=== PATIENT | male | born 1955 | race Caucasian/White ===

== ENCOUNTER 2025-03-05 20:54 | Emergency (ER) | payer MEDICARE, SELFPAY ==
--- OUTSIDE RECORDS SUMMARY | 2025-03-03 10:30 | XMS_ITS | Encounter Summary ---
Author Organization [facility] Ambulatory Address [address] [place] [address] Phone Care Team Providers Care Physician Practice Consultant Name Role Phone Maya Gastelum PA-C Unavailable [phone] Sander Bear MD Unavailable [phone] Elizabeth Blackmon MD, Viktoriya Unavailable [phone] Provider, Generic External Data Unavailable Unavailable Malou Yang PA-C Unavailable [phone] Dominic Rock MD Unavailable Citlali Pak PA-C Unavailable [phone] Provider, Historical Unavailable Unavailable Source Comments This information has been disclosed to you from records protected by federal confidentiality rules (42 CFR part 2). The federal rules prohibit you from making any further disclosure of information inthis record that identifies a patient as having or having had a substance use disorder either directly, by reference to publicly available information, or through verification of such identification by another person unless further disclosure is expressly permitted by the written consent of the individual whose information is being disclosed or as otherwise permitted by 42 CFR part 2. A general authorization for the release of medical or other information is NOT sufficient for this purpose (seesection 2.31). The federal rules restrict any use of the information to investigate or prosecute with regard to a crime any patient with a substance use disorder, except as provided at sections 2.12(c)(5) and 2.65.[facility] Ambulatory Reason for Visit * Reason Comments Bcg Instillation Encounter Details Date Type Department Care Team (Handy Contact Info) Description 03/03/2025 10:30 AM EDT Office Visit [facility] Department of Urology [address] [place] [address], [address] [address] Composite Bond Technician: Rita Miller Jessie Jane, PA-C [address] [place] [address] [address] Malignant neoplasm of overlapping sites of bladder (HCC) (Primary Dx) Social History Tobacco Use Types Packs/Day Years Used Date Smoking Tobacco: Former Cigarettes Smokeless Tobacco: Current Snuff Sex and Gender Information Value Date Recorded Sex Assigned at Not on file Legal Sex Male 1:25 PM EST Gender Identity Male 02/26/2025 8:54 PM EDT Sexual Orientation Straight 02/26/2025 8: 54 PM EDT documented as of this encounter Last Filed Vital Signs Vital Sign Reading Time Taken Comments Blood Pressure - - Pulse - - Temperature - - Respiratory Rate - - Oxygen Saturation - - Inhaled Oxygen Concentration - - Weight 88 kg (194 lb) 03/03/2025 10:39 AM EDT Height 175.3 cm (5' 9 ) 03/03/2025 10:39 AM EDT Body Mass Index 28.65 03/03/2025 10:39 AM EDT documented in this encounter Progress Notes * Cheryl Mayberry - 03/03/2025 10:30 AM EDT Instillation number: 3/3 Catheter size: 14 Catheter style: Coude Catheter type: Silicone 1. Have you had a fever, chills, or sweats at any time during the last four days? No 2. Have you seen blood in your urine at any time during the last four days? No 3. Have you experienced burning with urination during the last four days? No Any Yes answers will be communicated to an MD for direction and documented with the following questions: 4. Which MD did you speak with? Pasha SCHULTZ 5. What was the direction? Jose MA verbally discussed post BCG administration instructions with patient. documented in this encounter Plan of Treatment Not on file documented as of this encounter Procedures Procedure Name Priority Date/Time Associated Diagnosis Comments POCT URINALYSIS DIPSTICK Routine 03/03/2025 11:42 AM EDT Malignant neoplasm of overlapping sites of bladder (HCC) documented in this encounter Results * POCT URINALYSIS DIPSTICK (03/03/2025 11:42 AM EDT) COLOR - URINE (POC) YELLOW EXTERNAL FACILITY APPEARANCE - URINE (POC) CLEAR EXTERNAL FACILITY GLUCOSE - URINE (POC) >=1,000 Negative mg/dl EXTERNAL FACILITY BILIRUBIN - URINE (POC) neg Negative mg/dl EXTERNAL FACILITY KETONES - URINE (POC) neg Negative mg/dl EXTERNAL FACILITY SPECIFIC GRAVITY - URINE (POC) 1.020 1.003 - 1.035 EXTERNAL FACILITY BLOOD - URINE (POC) trace-inta ct Negative EXTERNAL FACILITY PH - URINE (POC) 5.5 5 - 9 EXT ERNAL FACILITY PROTEIN - URINE (POC) (MG/DL) 30 Negative mg/dl EXTERNAL FACILITY UROBILINOGEN - URINE (POC) (EU/DL) 0.2 0.2 - 1 mg/dl EXTERNAL FACILITY NITRITE - URINE (POC) pos Negative EXTERNAL FACILITY LEUKOCYTE - URINE (POC) small Negative EXTERNAL FACILITY Urine 03/03/2025 11:4 2 AM EDT Citlali Pak PA-C LAB POINT OF CARE TEST ENTER/EDIT ORDERABLES Final Result EXTERNAL FACILITY documented in this encounter Visit Diagnoses Diagnosis Malignant neoplasm of overlapping sites of bladder (HCC)- Primary Malignant neoplasm of other specified sites of bladder documented in this encounter Administered Medications Inactive Administered Medications - up to 3 most recent administrations Medication Order MAR Action Action Date Dose Rate Site BCG Live (Olpe BCG) susr 50 mg 50 mg, Normal, intravesical, Once, 1 dose, On Sat03/03/25 at 1230Indications:Malignant neoplasm of overlapping sites of bladder (HCC) Given 03/03/2025 12:30 PM EDT 50 mg documented in this encounter Care Teams Physician Practice Consultant Relationship Specialty Start Date End Date Maya Gastelum PA-C [address] [facility] [address] [place] [phone] PCP - CANCER CTR RMD 06/12/23 Sander Bear MD [address] [place] [address], [address] [facility] [place] [address] PCP - Cancer CTR Hematology & Oncology-Internal Med 06/12/23 Viktoriya Johnson MD [address] [facility] [address], [address] [place] [address] Urology 06/13/23 Provider, Generic External Data 06/25/23 Malou Yang PA-C [address] [facility] [address] [place] [address] Urology 10/10/23 Dominic Rock MD [address] [facility] [address] [place] [address] Urology 02/15/24 Citlali Pak PA-C [address] [facility] [address] [place] [phone] Urology 03/25/24 Provider, Historical EPICARE PROVIDER 12/02/24 documented as of this encounter
[2025-03-05 20:58] VITALS: BP 175/98; PULSE 77; RESP 20; TEMP 36.1; O2SAT 98; BMI 28.6
--- NOTE | 2025-03-05 21:06 | ED.GENADULT ---
HPI - General Adult General Chief complaint: Urogenital-Male Stated complaint: Needs catheter Time Seen by Provider: 03/05/25 21:05 Source: patient Limitations: no limitations History of Present Illness ED Provider: Teresa Chávez PA-C HPI narrative: 69-year-old male with self report of bladder cancer, currently admits treatment, with subsequent development of neurogenic bladder who self catheterizes at home, presents with retention. Patient states he is visiting from [place], he is here for a week, he forgot his catheter is at home. Patient last catheterized himself this morning, he is feeling bladder fullness at this time. Denies dysuria, nausea, vomiting, fever, abdominal pain or back pain. Related Data Previous Rx's ?Medication ?Instructions ?Recorded catheterization tray 14 Fr #20 ea 03/05/25 Allergies Allergy/AdvReac Type Severity Reaction Status Date / Time No Known Allergies Allergy Verified 03/05/25 21:02 Review of Systems Review of Systems: Yes all other systems are reviewed and are negative Constitutional: Constitutional: Denies fatigue and Denies fever(s) Cardiovascular: Cardiovascular: Denies chest pain and Denies dyspnea Respiratory: Respiratory: Denies dyspnea Gastrointestinal: Gastrointestinal: Denies abdominal pain, Denies nausea and Denies vomiting Genitourinary: Genitourinary: Denies dysuria and Denies flank pain Endocrine: Endocrine: Denies fatigue PMF Past Medical History Attestation statement: The following information was validated with the patient. Medical History (Updated 03/05/25 @ 21:12 by DMITRY Gilmore) Neurogenic bladder Social History Social History Advance Directives: No Advance Directives Information Provided: No Do you have a plan to hurt others: No Plan Physical Exam ED Vital Signs: Vital Signs - 24 hr 03/05/25 20:58 Temperature 97.0 F Pulse Rate 77 Respiratory Rate 20 Blood Pressure 175/98 H Pulse Oximetry 98 Oxygen Delivery Method Room Air BMI result Body Mass Index 28.6 Const Other: Alert well-appearing Orientation/consciousness: patient oriented x3 Resp Effort & Inspection: normal respiratory effort Cardio Other: Normal peripheral perfusion Skin Other: Warm dry no rash Neuro General: patient oriented x3 and gait normal Psych Other: Cooperative Medical Decision Making Medical Decision Making MDM Narrative: 69-year-old male with self report of bladder cancer, currently admits treatment, with subsequent development of neurogenic bladder who self catheterizes at home, presents with retention. Patient states he is visiting from [place], he is here for a week, he forgot his catheter is at home. Patient last catheterized himself this morning, he is feeling bladder fullness at this time. Denies dysuria, nausea, vomiting, fever, abdominal pain or back pain. Problem: Neurogenic bladder, bladder cancer History: Per patient I have considered the following differential diagnoses: Acute urinary retention, UTI, pyelonephritis, obstructing kidney stone Plan: The patient is here simply because he requires catheterization. He self caths himself, he had over a 1000 mL of output. His symptoms are alleviated. Sending him with a prescription for catheters. He has no symptoms of a urinary tract infection, he has no abdominal pain or back pain to suggest pyelonephritis, no fevers. There was no indication for imaging or labs. Differential Diagnosis Differential Diagnoses: The differential diagnosis associated with the presentation includes See MDM Admission/Observation Consideration of admission/observation: Escalation of care including admission/observation considered Not applicable Discharge Plan Discharge Clinical Impression: Neurogenic bladder Patient Disposition: Home, Self-Care Instructions: Neurogenic Bladder (ED) Additional Instructions: Be sure to self-catheterize on a regular basis, retained urine has the propensity to develop into a urinary tract infection. Follow up with your primary care provider when you return home. Prescriptions: New (DME) catheterization tray 14 Fr tray See Rx Instructions .Route Qty: 20 0RF Rx Instructions: As directed Print Language: Portuguese
--- OUTSIDE RECORDS SUMMARY | 2025-03-05 21:26 | XMS_ITS | Encounter Summary ---
Author Organization [facility] Address [address] [facility] [place] [address] Care Team Providers Care Dietary Worker Name Role Phone Maya Gastelum PA-C Primary Care Provider Jeremiah Amos MD Unavailable [phone] Gómez Little MD, Hammad Unavailable [phone] Alesia Prakash [facility] Unavailable + Deysi Mosquera [facility] Unavailable Gordo Chicas MD Unavailable Nicky Irizarry MD Unavailable Viktoriya Johnson MD Unavailable Gordo White NP Unavailable Encounter Details Date Type Department Care Team (Late st Contact Info) Description 03/26/2023 Orders Only [facility] - Emergency Department [address] [place] [address] Almita Gil RTR Anemia Social History Tobacco Use Types Packs/Day Years Used Date Smoking Tobacco: Former Cigarettes 1.5 40 0 10/05/1973 - 10/05/2013 Smokeless Tobacco: Current Snuff Alcohol Use Standard Drinks/Week Comments Not Currently 0 (1 standard drink = 0.6 oz pur e alcohol) Intimate Partner Violence Answer Date R ecorded In the past year, have you b een afraid of your partner or ex-partner? No 01/10/2023 Social Connections Answer Date Recorded How often do you see or talk to people that you care about and feel close to? (For example: talking to friends on the phone, visiting friends or family, going to zoroastrianism or club meetings) 5 or more times a week 01/10/2023 Financial Resource Strain Answer Date R ecorded In the past year, have you o r any family members you live with been unable to get any of the following when it was really needed? No 01/10/2023 Transportation Needs Answer Date Record ed Has lack of transportation k ept you from medical appointments, meetings, work, or from getting things needed for daily living? No 01/10/2023 Housing Stability Answer Date Recorded What is your housing situation? I have housing. 01/10/2023 Are you worried about losing your housing? No 01/10/2023 Health Literacy Answer Date Recorded How often do you have a prob lazaro understanding what is told to you about your medical condition? Never 01/10/2023 Employment Status Answer Date Recorded What is your current work situation? 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 Answer Date of Assessment Author No 03/26/2022 7:43 AM Joan Coronel RN * Blind or serious difficulty seeing even with glasses? Answer Date of Assessment Author No 03/26/2022 7:43 AM Joan Coronel RN * Serious difficulty walking/climbing stairs? Answer Date of Assessment Author Yes 03/26/2022 7:43 AM Joan Coronel RN * Difficulty dressing or bathing? Answer Date of Assessment Author No 03/26/2022 7:43 AM Joan Coronel RN * Has difficulty doing errands because of physical, mental or emotional condition? Answer Date of Assessment Author No 03/26/2022 7:43 AM EDT Joan Wick RN documented as of this encounter Mental Status * Has serious difficulty concentrating, remembering or making decisions because of physical, mental or emotional condition ? Answer Entry Date Author No 03/26/2022 7:43 AM EDT Joan Wick RN documented in this encounter Plan of Treatment Upcoming Encounters Date Type Department Care Team (Late st Contact Info) Description 03/10/2025 9:00 AM EDT Office Visit Plastic Surgery [address] [place] [address], [place] [phone] Loc Chavez MD [address] [place] [address] [address] [place], [place] [phone] 04/01/2025 10:30 AM EDT Office Visit Family Medicine[address], [place] [phone] Maya Gastelum PA-C [address] [place] [address], [place] [phone] 04/16/2025 1:00 PM EDT Office Visit Hematology/Oncology, [facility] [address] [place] [address], [place] [phone] Teresita Warren NP [address] [facility] [address] [place], [place] [phone] 12/01/2025 10:00 AM EDT Office Visit [facility] [address] [place] [address], [place] [phone] Ruba Gil DO [address] [place] [address], [place] [phone] documented as of this encounter Procedures Procedure Name Priority Date/Time Associated Diagnosis Comments SCAN DIFFERENTIAL Routine 03/26/2023 5:1 1 PM EDT Anemia CBC WITH DIFF STAT 03/26/2023 5:11 PM EDT Anemia CBC/DIFF STAT 03/26/2023 5:11 PM EDT Anemia documented in this encounter Results * SCAN DIFFERENTIAL (03/26/2023 5:11 PM EDT) LARGE PLATELETS Present 8:46 PM EDT [facility] ANISOCYTOSIS 2+ 03/26/2023 8:46 PM EDT [facility] OVALOCYTE (ELLIPTOCYTE) 1+ 03/26/2023 8:46 PM EDT [facility] WBC MORPHOLOGY COMMENT Normal 03/26/2023 8:46 PM EDT [facility] POIKILOCYTOSIS Present 03/26/2023 8:46 PM EDT [facility] Blood BLOOD SPECIMEN / Unknown Venipuncture / Unknown 03/26/2023 5:11 PM EDT 03/26/2023 7:44 PM EDT us Clarissa Louis PA-C LAB-HEMATOLOGY ORDERABLES Final Result [facility] [address] [place] [address] * (ABNORMAL) CBC WITH DIFF (03/26/2023 5:11 PM EDT) WBC 10.1 4.5 - 11.0 x10 3/uL 03/26/2023 8:46 PM EDT [facility] RBC 4.27(L) 4.70 - 5.40 x10 6/uL 03/26/2023 8:46 PM EDT [facility] HGB 8.8(L) 13.5 - 18.0 g/dL 03/26/2023 8:46 PM EDT [facility] HCT 29.4(L) 42.0 - 52.0 % 03/26/2023 8:46 PM EDT [facility] MCV 68.9(L) 78.0 - 100.0 fL 03/26/2023 8:46 PM EDT [facility] MCH 20.5(L) 28.0 - 33.0 pg 03/26/2023 8:46 PM EDT [facility] MCHC 29.8(L) 32.0 - 37.0 g/dL 03/26/2023 8:46 PM EDT [facility] RDW 20.1(H) 9.9 - 16.5 % 03/26/2023 8:46 PM EDT [facility] PLATELETS 424(H) 130 - 400 x10 3/uL 03/26/2023 8:46 PM EDT [facility] NEUTROPHIL % 73(H) 50 - 70 % 03/26/2023 8:46 PM EDT [facility] LYMPHOCYTE % 17(L) 23 - 35 % 03/26/2023 8:46 PM EDT [facility] MONOCYTE % 6 0 - 12 % 03/26/2023 8:46 PM EDT [facility] EOSINOPHIL % 4 0 - 4 % 03/26/2023 8:46 PM EDT [facility] BASOPHIL % 1 0 - 1 % 03/26/2023 8:46 PM EDT [facility] NEUTROPHIL # 7.40(H) 1.70 - 7.00 x10 3/uL 03/26/2023 8:46 PM EDT [facility] LYMPHOCYTE # 1.70 0.90 - 4.80 x10 3/uL 03/26/2023 8:46 PM EDT [facility] MONOCYTE # 0.60 0.30 - 0.90 x10 3/uL 03/26/2023 8:46 PM EDT [facility] EOSINOPHIL # 0.40 0.00 - 0.50 x10 3/uL 03/26/2023 8:46 PM EDT [facility] BASOPHIL # 0.10 0.00 - 0.30 x10 3/uL 03/26/2023 8:46 PM EDT [facility] Blood BLOOD SPECIMEN / Unknown Venipuncture / Unknown 03/26/2023 5:11 PM EDT 03/26/2023 7:44 PM EDT Clarissa Louis PA-C LAB-HEMATOLOGY ORDERABLES Final Result [facility] [address] [place], [place] [phone] documented in this encounter Visit Diagnoses Diagnosis Anemia Anemia, unspecified documented in this encounter Care Teams Dietary Worker Relationship Specialty Start Date End Date Maya Gastelum PA-C [address] [facility] [address] [place], [place] [phone] PCP - General PHYSICIAN CIVIL PREPAREDNESS OFFICER 05/02/22 Jeremiah Amos MD [address] [facility] [address] [place], [place] [phone] ORTHOPAEDIC SURGERY 06/27/22 Hammad Magaña Jr., MD [address] [place], [place] [phone] UROLOGY 06/27/22 07/22/23 Alesia Prakash [facility] [address] [place] [address] [address] [place] [address] Registered Nurse FAMILY NURSE PRACTITIONER 06/27/22 Deysi Mosquera APRN,[facility] [address] [address] [place] [address] FAMILY NURSE PRACTITIONER 06/27/22 Gordo Chicas MD [address] [place] [address] [address] [place] [address] GASTROENTEROLOGY 06/27/22 Semins, Nicky De Paz MD [address] [facility] [place] [address] UROLOGY 06/12/23 Viktoriya Johnson MD [address] [facility] [address] [place] [address] UROLOGY 02/20/24 Gordo White NP [address] [place] [address] FAMILY NURSE PRACTITIONER 10/06/24 documented as of this encounter
--- OUTSIDE RECORDS SUMMARY | 2025-03-05 21:26 | XMS_ITS | Encounter Summary ---
Author Organization [facility] Address [address] [facility] [place] [place] [address] Care Team Providers Care Stock Associate Name Role Phone Maya Gastelum PA-C Primary Care Provider [phone] Jeremiah Amos MD Unavailable Alesia Prakash MEETING PLANNER-BC Unavailable + Deysi Mosquera APRNMEETING PLANNER-BC Unavailable [phone] Gordo Chicas MD Unavailable Nicky Irizarry MD Unavailable Viktoriya Johnson MD Unavailable Gordo White NP Unavailable Encounter Details Date Type Department Care Team (Late st Contact Info) Description 03/01/2025 Orders Only Family Medicine, [facility] Professional Building [address] [place] [address] [place] [phone] Maya Gastelum PA-C [address] [place] [address] [place] [address] Social History Tobacco Use Types Packs/Day Years Used Date Smoking Tobacco: Former Cigarettes 1.5 40 0 10/05/1973 - 10/05/2013 Smokeless Tobacco: Current Snuff Alcohol Use Standard Drinks/Week Comments Not Currently 0 (1 standard drink = 0.6 oz pur e alcohol) Very rare. Intimate Partner Violence Answer Date R ecorded In the past year, have you b een afraid of your partner or ex-partner? No 06/04/2023 Social Connections Answer Date Recorded How often do you see or talk to people that you care about and feel close to? (For example: talking to friends on the phone, visiting friends or family, going to orthodox or club meetings) 5 or more times a week 05/25/2024 Financial Resource Strain Answer Date R ecorded In the past year, have you o r any family members you live with been unable to get any of the following when it was really needed? No 06/04/2023 Transportation Needs Answer Date Record ed Has lack of transportation k ept you from medical appointments, meetings, work, or from getting things needed for daily living? No 06/04/2023 Housing Stability Answer Date Recorded What is your housing situation? I have housing. 06/04/2023 Are you worried about losing your housing? No 06/04/2023 Health Literacy Answer Date Recorded How often do you have a prob lazaro understanding what is told to you about your medical condition? Never 05/25/2024 Employment Status Answer Date Recorded What is your current work situation? 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 Answer Date of Assessment Author No 05/22/2024 2:00 PM Patt Goddard RN * Blind or serious difficulty seeing even with glasses? Answer Date of Assessment Author No 05/22/2024 2:00 PM Patt Goddard RN * Serious difficulty walking/climbing stairs? Answer Date of Assessment Author No 05/22/2024 2:00 PM Patt Goddard RN * Difficulty dressing or bathing? Answer Date of Assessment Author No 05/22/2024 2:00 PM Patt Goddard RN * Has difficulty doing errands because of physical, mental or emotional condition? Answer Date of Assessment Author No 05/22/2024 2:00 PM Patt Goddard RN documented as of this encounter Mental Status * Has serious difficulty concentrating, remembering or making decisions because of physical, mental or emotional condition ? Answer Entry Date Author No 05/22/2024 2:00 PM Patt Goddard RN documented in this encounter Plan of Treatment Upcoming Encounters Date Type Department Care Team (Late st Contact Info) Description 03/10/2025 9:00 AM EDT Office Visit Plastic Surgery [address] [place] [address], [place] [phone] Loc Chavez MD [address] [address] 04/01/2025 10:30 AM EDT Office Visit Family Medicine[address] [phone] Maya Gastelum PA-C [address] [place] [address] [phone] 04/16/2025 1:00 PM EDT Office Visit Hematology/Oncology, [place] [address] [address] [place] [phone] Teresita Warren NP [address] [place] [address] 12/01/2025 10:00 AM EDT Office Visit [facility] [address] [place] [address], W [phone] Ruba Gil DO [address] [place] [address], [place] [phone] documented as of this encounter Visit Diagnoses Not on filedocumented in this encounter Care Teams Stock Associate Relationship Specialty Start Date End Date Maya Gastelum PA-C [address] [place], [place] [address] [place], [place] [phone] PCP - General PHYSICIAN CLINICAL LAB TECHNOLOGIST 05/02/22 Jeremiah Amos MD [address] [facility] [address] [place], [place] [phone] ORTHOPAEDIC SURGERY 06/27/22 Alesia Prakash, [facility] [address] [address] [place] [address] Registered Nurse FAMILY NURSE PRACTITIONER 06/27/22 Deysi Mosquera APRN,[facility] [address] [place] [address] 300 [place] [address] FAMILY NURSE PRACTITIONER 06/27/22 Gordo Chicas MD [address] [place] [address], [place] [address] GASTROENTEROLOGY 06/27/22 Nicky Irizarry MD [address] [facility] [place] [address] UROLOGY 06/12/23 Viktoriya Johnson MD [address] [place] [address] [address] [place] [address] UROLOGY 02/20/24 Gordo White NP 1 [facility] [place] [address] FAMILY NURSE PRACTITIONER 10/06/24 documented as of this encounter
--- OUTSIDE RECORDS SUMMARY | 2025-03-05 21:26 | XMS_ITS | Clinical Summary ---
Author Organization [facility] Address [address] [facility] [place] [address] Care Team Providers Care Cash Sales Audit Clerk Name Role Phone Maya Gastelum PA-C Primary Care Provider [phone] Jeremiah Amos MD Unavailable Alesia Prakash GAS ENGINE OPERATOR GENERAT[employer]-BC Unavailable + Deysi Mosquera APRNGAS ENGINE OPERATOR GENERATORS-BC Unavailable Gordo Chicas MD Unavailable Nicky Irizarry MD Unavailable Viktoriya Johnson MD Unavailable Gordo White NP Unavailable Allergies Active Allergy Reactions Criticality Noted Date Comments Sulfamethoxazole-Trime thoprim Itching Low 10/05/2021 Ciprofloxacin Hcl Rash,Itching Medium 10/05/2021 Succinylcholine Chloride Other Adverse Reaction (Add comment) High 10/05/2021 EXAGGERATED INCREASES IN CK LEVELS DURING MICROLARYNGOSCOPY & SHOULD AVOID EXPOSURE TO THIS POLARIZING MS RELAXANT. Nitrofurantoin Monohyd/M-Cryst Itching Low 10/05/2021 Morphine Mental Status Effect 03/04/2024 Succinylcholine Other Adverse Reaction (Add comment) Low 10/05/2021 [email or web address] Medications * This document contains information received from the source organization and may not represent a complete record from that organization. aspirin (ECOTRIN) 81 mg Oral Tablet, Delayed Release (E.C.) Take 1 Tablet (81 mg total) by mouth Once a day 02/21/20 22 Active ferrous sulfate (FEOSOL) 325 mg (65 mg iron) Oral Tablet Take 1 Tablet (325 mg total) by mouth Once a day 30 Tablet 3 03/28/20 23 Active cyclobenzaprin e (FLEXERIL) 10 mg Oral Tablet TAKE 1 TABLET BY MOUTH EVERY NIGHT NEEDED FOR MUSCLE SPASMS 30 Tablet 2 12/17/19 24 Active budesonide-gly copyr-formoter ol (BREZTRI AEROSPHERE) 160-9-4.8 mcg/actuation Inhalation HFA Aerosol Inhaler Take 2 Puffs by inhalation Twice daily 1 Each 10/02/19 25 Active atorvastatin (LIPITOR) 80 mg Oral Tablet TAKE ONE TABLET BY MOUTH ONCE NIGHTLY 90 Tablet 1 11/10/19 25 Active DULoxetine (CYMBALTA DR) 60 mg Oral Capsule, Delayed Release(E.C.) TAKE 1 CAPSULE BY MOUTH DAILY 90 Capsule 1 11/10/19 25 Active levothyroxine (SYNTHROID) 88 mcg Oral Tablet TAKE 1 TABLET BY MOUTH DAILY 90 Tablet 1 12/29/19 25 Active metFORMIN (GLUCOPHAGE XR) 500 mg Oral Tablet Sustained Release 24 hr TAKE 4 TABLETS BY MOUTH EVERY EVENING WITH DINNER 360 Tablet 1 02/09/20 25 Active losartan (COZAAR) 25 mg Oral Tablet TAKE 1 TABLET BY MOUTH DAILY 90 Tablet 1 02/09/20 25 Active allopurinoL (ZYLOPRIM) 100 mg Oral Tablet TAKE 1 TABLET BY MOUTH DAILY 90 Tablet 1 02/09/20 25 Active dapagliflozin propanediol (FARXIGA) 10 mg Oral Tablet Take 1 Tablet (10 mg total) by mouth Once a day 90 Tablet 1 03/01/20 25 Active dapagliflozin propanediol (FARXIGA) 10 mg Oral Tablet Take 1 Tablet (10 mg total) by mouth Once a day 90 Tablet 1 03/20/20 24 025 Discontinued(Re order) allopurinoL (ZYLOPRIM) 100 mg Oral Tablet Take 1 Tablet (100 mg total) by mouth Once a day 90 Tablet 1 07/28/19 25 025 Discontinued losartan (COZAAR) 25 mg Oral Tablet Take 1 Tablet (25 mg total) by mouth Once a day 90 Tablet 1 08/11/19 25 025 Discontinued metFORMIN (GLUCOPHAGE XR) 500 mg Oral Tablet Sustained Release 24 hr Take 4 Tablets (2,000 mg total) by mouth Every evening with dinner TAKE FOUR TABLETS BY MOUTH ONCE DAILY Strength: 500 mg 360 Tablet 1 08/11/19 25 025 Discontinued Hospital, Clinic, or Other Facility Administered Medication Ordered Dose Route Frequency Start Date End Date Status dexAMETHasone 4 mg/mL injection 4 mg IM NOW 02/12/2025 02/12/2025 Ended Active Problems Problem Noted Date Diagnosed Date Chronic respiratory failure with hypoxia ([facility]) 12/30/2024 Hematuria 02/16/2024 Acute kidney injury ([facility]) 02/16/2024 Chronic obstructive pulmonary disease 07/23/2023 Malignant neoplasm of urinary bladder 07/23/2023 Obstructive sleep apnea 07/23/2023 HTN (hypertension) 07/23/2023 Neurogenic bladder 06/04/2023 Multiple comorbid conditions 06/04/2023 Elevated PSA 06/04/2023 Gross hematuria 06/03/2023 Iron deficiency anemia due to chronic blood loss 04/04/2023 Chronic kidney disease, stage 3b ([facility]) 08/27 Overview (08/27/2022): Noted by AARON Perdomo GAS ENGINE OPERATOR GENERATORS last documented on [id number] Major depressive disorder, r ecurrent, in full remission ([facility]) 08/27/2022 Overview (08/27/2022): Noted by LAKISHA Lincoln PAC last documented on [id number] Chronic kidney disease 06/27/2022 Chest pain 02/20/2022 Uncontrolled hypertension 11/28/2021 Assessment & Plan (11/28/2021 1:29 PM EDT): - continue lisinopril Mixed hyperlipidemia 11/28/2021 Assessment & Plan (11/28/2021 1:30 PM EDT): - lipid panel today - continue atorvastatin Type 2 diabetes mellitus wit hout complication, with long-term current use of insulin 11/28/2021 Assessment & Plan (11/28/2021 1:30 PM EDT): - A1c ordered today - continue metformin Chronic gout 11/28/2021 Assessment & Plan (11/28/2021 1:31 PM EDT): - continue allopurinol Resolved Problems Problem Noted Date Diagnosed Date Resolved Date Bilateral occipital neuralgia 11/28/2021 11/28/2021 Assessment & Plan (11/28/2021 1:37 PM EDT): - BL occipital nerve blocks Encounters Date Type Department Care Team Description 03/01/2025 Orders Only Family [address] [place] [address] Maya Gastelum PA-C 02/14/2025 Travel 02/12/2025 10:00 AM EDT Office Visit [facility] [address] [place] [address] Freddy Garcia III, FNP-[place] Headache (Primary Dx) 02/12/2025 Travel 02/10/[address] [place] [address] Maya Gastelum PA-C Coordination Of Care 02/08/2025 Telephone Gastroenterology, [address] [address] Dae Webb DO 02/06/2025 Refill Family [facility], [address] [place] [address] Maya Gastelum PA-C 01/24/2025 4:30 PM EDT Office Visit [employer] [facility] [address] [place] [address] Winnie Fontana PA-C Rash (Primary Dx) 01/24/2025 Travel 12/30/2024 11:00 AM EDT Office Visit [address] [place] [address] Maya Gastelum PA-C Type 2 diabetes mellitus with hyperglycemia, without long-term current use of insulin ([facility]) (Primary Dx); Type II diabetes mellitus with nephropathy ([facility]); Essential hypertension; Chronic respiratory failure with hypoxia ([facility]); Mucopurulent chronic bronchitis ([facility]); Mixed hyperlipidemia; Acquired hypothyroidism; Stage 3b chronic kidney disease ([facility]); Malignant neoplasm of posterior wall of urinary bladder ([facility]); Trigger ring finger of left hand; Gout 12/29/2024 Travel 12/26/2024 Refill Family Medicine, [facility] [address] [place] [address] Maya Gastelum PA-C from Last 3 Months Immunizations Immunization Administration Dates Next Due Covid-19 Vaccine,Payment plugin,Purple Top,12yrs+ 06/14/2021,10/27/2020,10/06/2020 Influenza Vaccine, 65+ 03/28/2023 PREVNAR 13 01/06/2018 Pneumovax 02/28/2022,11/07/2012 Family History Medical History Relation Name Comments Lung Cancer Brother 1 Pancreatic Cancer Brother 2 Throat cancer Father No Known Problems Maternal Grandfather No Known Problems Maternal Grandmother Lymphoma Mother Stroke Mother No Known Problems Paternal Grandfather No Known Problems Paternal Grandmother Relation Name Status Comments Brother 1 Brother 2 Alive Father Maternal Grandfather Maternal Grandmother Mother Paternal Grandfather Paternal Grandmother Social History Tobacco Use Types Packs/Day Years Used Date Smoking Tobacco: Former Cigarettes 1.5 40 0 10/05/1973 - 10/05/2013 Smokeless Tobacco: Current Snuff Tobacco Cessation:Ready to Q uit: Not Asked; Counseling Given: Not Answered Alcohol Use Standard Drinks/Week Comments Not Currently [...] phone, visiting friends or family, going to buddhist or club meetings) 5 or more times [...] 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) 06/04/2023 Sex and Gender Information Value Date Recorded Sex Assigned at Male 01/11/2022 12:00 AM EDT Legal Sex Male 2:15 PM EST Gender Identity Male 01/11/2022 12:00 AM EDT Sexual Orientation Not on file Last Filed Vital Signs Vital Sign Reading Time Taken Comments Blood Pressure 150/92 02/12/2025 9:54 AM EDT Pulse 70 02/12/2025 9:54 AM EDT Temperature 36.5 C (97.7 F) 02/12/2025 9:54 AM EDT Respiratory Rate 18 07/09/2024 11:18 AM EST Oxygen Saturation 94% 02/12/2025 9:54 AM EDT Inhaled Oxygen Concentration - - Weight 87.1 kg (192 lb) 02/12/2025 9:54 AM EDT Height 175.3 cm (5' 9 ) 02/12/2025 9:54 AM EDT Body Mass Index 28.35 02/12/2025 9:54 AM EDT Plan of Treatment Upcoming Encounters Date Type Department Care Team (Late st Contact Info) Description 03/10/2025 9:00 AM EDT Office Visit Plastic Surgery [address] [facility] [place] [address] Loc Chavez MD [address] [place] [address] [address] [place] [address] 04/01/2025 10:30 AM EDT Office Visit Family Medicine, [facility] Building [address] [place] [address] Maya Gastelum PA-C [address] [facility] [address] [place], [place] [phone] 04/16/2025 1:00 PM EDT Office Visit Hematology/Oncology, [facility] 4 [address] [facility] [place] [phone] Teresita Warren NP 40 [facility] [address] [place], [place] [id number] 12/01/2025 10:00 AM EDT Office Visit [facility], [facility] [address] [place] [address], [address] [place] [phone] Ruba Gil, [address] [place] [address] 500 [place] [phone] Health Maintenance Due Date Last Done Comments Adult Tdap-Td (1 - Tdap) 1974 Shingles Vaccine (1 of 2) 2005 RSV Adult 60+ or ( 1 - Risk 60-74 years 1-dose series) 2015 Diabetic Retinal Exam 10/24/2023 10/23/2022 Covid-19 Vaccine (2023-2 5 season) 2024 06/14/2021, 10/27/2020, 10/06/2020 CT Lung Cancer Screening 01/13/2025 025, 01/08/2024, 12/21/2022 [facility] [employer] Cap ture Hidden 02/05/2025 Influenza Vaccine (#1) 2025 03/28/2023 Diabetic A1C 11/18/2025 11/18/2024, 10/06, 07/23/2023, Additional history exists Diabetic Kidney Health eGFR 11/18/202511/05, 11/18/2024, 06/15/2024, Additional history exists Prostate Cancer Screening 11/18/20262024, 05/15/2023, 05/15/2023, Additional history exists Colonoscopy 05/25/2029 05/25/2024, 03/08, 07/13/2014 Pneumococcal Vaccination, Age 50+ Completed 02/28/2022, 01/06/2018, 11/07/2012 Hepatitis C screening Completed 03/08/2022 AAA Screening Completed 03/29/2022 Diabetic Kidney Health Microalbumin/Cr Ratio Completed 07/16/2024, 03/29/2023, 03/08/2022 Medicare Annual Wellness Vis it - Calendar Year Insurers Completed 09/29/2024, 07/23/2023, 01/10/2023 Procedures Procedure Name Priority Date/Time Associated Diagnosis Comments PSA, DIAGNOSTIC Routine 11/18/2024 1:24 PM EDT Elevated PSA HGA1C (HEMOGLOBIN A1C WITH EST AVG GLUCOSE) Routine 11/18/2024 1:24 PM EDT Type II diabetes mellitus with nephropathy ([facility]) RENAL FUNCTION PANEL Routine 11/18/2024 1:24 PM EDT Stage 3b chronic kidney disease ([facility]) Hypertension, unspecified type Type 2 diabetes mellitus Proteinuria, unspecified type NSAID long-term use Neurogenic bladder CT CHEST W IV CONTRAST Routine 10/14/2024 3:08 PM EDT Hilar adenopathy Lung nodules Ground glass opacity present on imaging of lung MICROALBUMIN/CREATIN INE RATIO, URINE, RANDOM Routine 07/16/2024 12:13 PM EST Stage 3b chronic kidney disease ([facility]) Hypertension, unspecified type Type 2 diabetes mellitus Proteinuria, unspecified type NSAID long-term use Neurogenic bladder COLONOSCOPY Routine 05/25/2024 11:48 AM EST DIABETES EYE EXAM Routine 10/23/2022 ABDOMINAL DUPLEX - AORTA - MEDICARE SCREEN FOR AAA Routine 03/29/2022 8:56 AM EDT Encounter for abdominal aortic aneurysm (AAA) screening HEPATITIS C ANTIBODY SCREEN WITH REFLEX TO HCV PCR Routine 03/08/2022 9:07 AM EDT Need for hepatitis C screening test from Last 3 Months or Most Recently Relevant to Health Maintenance Results * (ABNORMAL) PSA, DIAGNOSTIC (11/18/2024 1:24 PM EDT) PSA 8.72(H) 0.00 - 4.00 ng/mL 11/18/2024 3:18 PM EDT [facility] Blood BLOOD SPECIMEN / Unknown Venipuncture / Unknown 11/18/2024 1:24 PM EDT 11/18/2024 1:24 PM EDT Narrative [facility] - 11/18/2024 3:18 PM EDT PSA Methodology = Chemiluminescent immunoassay performed on Microlauncher[employer] 7600. Note: Patient results determined by assays using different manufacturers or methods may not be comparable. us Gordo White NP LAB-CHEMISTRY ORDERABLES Final R esult [facility] [address] [place] [address], * (ABNORMAL) HGA1C (HEMOGLOBIN A1C WITH EST AVG GLUCOSE) (11/18/2024 1:24 PM EDT) HEMOGLOBIN A1C 7.0(H) 4.0 - 5.6 % 11/19/2024 3:04 AM EDT [facility] ESTIMATED AVERAGE GLUCOSE 154 mg/dL 11/19/2024 3:04 AM EDT [facility] Blood BLOOD SPECIMEN / Unknown Venipuncture / Unknown 11/18/2024 1:24 PM EDT 11/18/2024 1:24 PM EDT Narrative [facility] - 11/19/2024 3:04 AM EDT [place] Diabetes Association (ADA) endorsed Hemoglobin A1C (glycated Hemoglobin) decision points: Normal: <5.7%, Prediabetic: 5.7-6.4%, Diabetic: >6.4% An evidence-based therapeutic goal of <7.0% is suggested by the ADA to reduce microvascular and neuropathic complications of type 1 and type 2 diabetes, but clinical goals may vary in different clinical situations. There are no age/gender specific ranges for eAG. us Maya Gastelum PA-C LAB-IMMUNOLOGY ORDERABLES Fi nal Result [facility] [place], [place] [id number] * (ABNORMAL) RENAL FUNCTION PANEL (11/18/2024 1:24 PM EDT) SODIUM 140 137 - 145 mmol/L 11/18/2024 2:42 PM EDT [facility] POTASSIUM 4.5 3.5 - 5.1 mmol/L 11/18/2024 2:42 PM EDT [facility] CHLORIDE 109(H) 98 - 107 mmol/L 11/18/2024 2:42 PM EDT [facility] CO2 TOTAL 18(L) 22 - 30 mmol/L 11/18/2024 2:42 PM EDT [facility] ANION GAP 13 5 - 19 mmol/L 11/18/2024 2:42 PM EDT [facility] BUN 33(H) 9 - 20 mg/dL 11/18/2024 2:42 PM EDT [facility] CREATININE 1.86(H) 0.66 - 1.20 mg/dL 11/18/2024 2:42 PM EDT [facility] BUN/CREA RATIO 18 6 - 20 11/18/2024 2:42 PM EDT [facility] ESTIMATED GFR 39(L) >60 mL/min/1.7 3m 2 11/18/2024 2:42 PM EDT [facility] CALCIUM 9.5 8.4 - 10.2 mg/dL 11/18/2024 2:42 PM EDT [facility] GLUCOSE 200(H) 74 - 106 mg/dL 11/18/2024 2:42 PM EDT [facility] PHOSPHORUS 3.4 2.5 - 4.5 mg/dL 11/18/2024 2:42 PM EDT [facility] ALBUMIN 4.0 3.5 - 5.0 g/dL 11/18/2024 2:42 PM EDT [facility] Blood BLOOD SPECIMEN / Unknown Venipuncture / Unknown 11/18/2024 1:24 PM EDT 11/18/2024 1:24 PM EDT Narrative [facility] - 11/18/2024 2:42 PM EDT Estimated Glomerular Filtration Rate (eGFR) is calculated using the CKD-EPI (2020) equation, intended for patients 18 years of age and older. If gender is not documented or unknown , there will be no eGFR calculation. us Ruba Gil DO LAB-CHEMISTRY ORDERABLES Lori l Result [facility] [address] [place] [address], [place] * CT CHEST W IV CONTRAST (10/14/2024 3:08 PM EDT) Anatomical Region Laterality Modality Chest, [facility], [facility], [facility], [facility], [facility], CCM, RMH, BRX, SMR, CH[facility]STINE, JMC, BMC, UTN, HRS, BRN, WHL, PRN Computed Tomogr aphy 10/14/2024 3:20 PM EDT Impressions 10/14/2024 3:34 PM EDT 1. The prior right lower lobe nodule is no longer seen. Unchanged 6 mm juxtapleural solid nodule in the right upper lobe and 8 mm subsolid nodule in the left upper lobe. Patient can return to annual low dose screening CT chest, with the left exam one year from now. 2. Large amount of airway mucous (chronic bronchitis) or aspirated debris. Multisegmental airway mucoid occlusion in the right lower lobe. One or more dose reduction techniques were used (e.g., Automated exposure control, adjustment of the mA and/or kV according to patient size, use of iterative reconstruction technique). Radiologist location ID: [id number] Narrative 10/14/2024 3:34 PM EDT BAKARI LOMAS RADIOLOGIST: Alison Morales CT CHEST W IV CONTRAST performed on 10/14/2024 3:08 PM CLINICAL HISTORY: R59.0: Hilar adenopathy R91.8: Lung nodules R91.8: Ground glass opacity present on imaging of lung. hx of bladder ca in past TECHNIQUE: Chest CT with intravenous contrast. CONTRAST: 75 ml's of Isovue 300 COMPARISON: 01/08/2024, 12/21/2022. PET/CT 01/25/2024. FINDINGS: Hardware: None. Lymph nodes: No mediastinal, hilar, or axillary lymphadenopathy. Heart and Vasculature: Normal heart size. No pericardial effusion. Coronary artery calcifications are present. Mild atherosclerotic calcifications of the thoracic aorta. Pulmonary arteries are unremarkable. Lungs and Airways: Significant mucous or aspirated debris debris within the large and small airway, worst in the right lower lobe with occlusion of several segmental airways. No parenchymal consolidation. Prior nodular density in the right lower lobe along with linear scarring is no longer seen. Unchanged 6 mm juxtapleural nodule in the right upper lobe (4/73). Unchanged 8mm subpleural subsolid nodule density left upper lobe anterior segment (4/78). Pleura: No pleural effusion. No pneumothorax. Upper Abdomen: Hypodensity in the hepatic dome with punctate calcifications unchanged. Bones: Degenerative changes of the thoracic spine. Procedure Note Alison Morales MD - 10/14/2024 BAKARI LOMAS RADIOLOGIST: Alison Morales CT CHEST W IV CONTRAST performed on 10/14/2024 3:08 PM CLINICAL HISTORY: R59.0: Hilar adenopathy R91.8: Lung nodules R91.8: Ground glass opacity present on imaging of lung. hx of bladder ca in past TECHNIQUE: Chest CT with intravenous contrast. CONTRAST: 75 ml's of Isovue 300 COMPARISON: 01/08/2024, 12/21/2022. PET/CT 01/25/2024. FINDINGS: Hardware: None. Lymph nodes: No mediastinal, hilar, or axillary lymphadenopathy. Heart and Vasculature: Normal heart size. No pericardial effusion.Coronary artery calcifications are present. Mild atheroscleroticcalcifications of the thoracic aorta. Pulmonary arteries areunremarkable. Lungs and Airways: Significant mucous or aspirated debris debris withinthe large and small airway, worst in the right lower lobe with occlusionof several segmental airways. No parenchymal consolidation. Prior nodular density in the right lower lobe along with linear scarringis no longer seen. Unchanged 6 mm juxtapleural nodule in the right upper lobe (). Unchanged 8mm subpleural subsolid nodule density left upper lobe anteriorsegment (). Pleura: No pleural effusion. No pneumothorax. Upper Abdomen: Hypodensity in the hepatic dome with punctatecalcifications unchanged. Bones: Degenerative changes of the thoracic spine. IMPRESSION: 1.The prior right lower lobe nodule is no longer seen. Unchanged 6 mmjuxtapleural solid nodule in the right upper lobe and 8 mm subsolid nodulein the left upper lobe. Patient can return to annual low dose screening CT chest, with the leftexam one year from now. 2.Large amount of airway mucous (chronic bronchitis) or aspirated debris.Multisegmental airway mucoid occlusion in the right lower lobe. One or more dose reduction techniques were used (e.g., Automated exposurecontrol, adjustment of the mA and/or kV according to patient size, use ofiterative reconstruction technique). Radiologist location ID: [id number] Beckie Gonzales PA-C CT ORDERABLES Final Resul t * (ABNORMAL) MICROALBUMIN/CREATININE RATIO, URINE, RANDOM (07/16/2024 12:13 PM EST) CREATININE RANDOM URINE 85 No Reference Range Established mg/dL 07/16/2024 1:47 PM EST [facility] MICROALBUMIN RANDOM URINE 15.7(H) 0.0 - 1.7 mg/dL 07/16/2024 1:47 PM EST [facility] MICROALBUMIN/CRE ATININE RATIO RANDOM URINE 184.7(H) 0.0 - 29.9 mg/g 07/16/2024 1:47 PM EST [facility] Urine URINE SPECIMEN / Unknown Collection / Unknown 07/16/2024 12:13 PM EST 07/16/2024 12:13 PM EST Ruba G Jeffery LAB-IMMUNOLOGY ORDERABLES Fin al Result [facility] 1 [place] [address], [place] * COLONOSCOPY (05/25/2024 11:48 AM EST) 05/25/2024 11:4 8 AM EST Narrative [facility] - 05/25/2024 12:48 PM EST Procedure Date: 05/25/2024 11:48 AM Patient Name: Bakari Lomas Date of : 1955 Admit Type: Outpatient Room: [place] [address] Gender: Male Age: 68 Attending MD: Liana Sheriff MD, Procedure: Colonoscopy Providers: Liana Sheriff MD Referring MD: Maya Gastelum (Referring MD) Indications: Abnormal PET scan of the GI tract Patient Profile: This is a 68 year old male. Last Colonoscopy: 2021. Patient has personal history of polyps Medicines: Monitored Anesthesia Care Procedure: Pre-Anesthesia Assessment: - Prior to the procedure, a History and Physical was performed, and patient medications and allergies were reviewed. The patient is competent. The risks and benefits of the procedure and the sedation options and risks were discussed with the patient. All questions were answered and informed consent was obtained. Patient identification and proposed procedure were verified by the physician in the pre-procedure area. Mental Status Examination: alert and oriented. Airway Examination: normal oropharyngeal airway and neck mobility. Respiratory Examination: clear to auscultation. CV Examination: normal. After reviewing the risks and benefits, the patient was deemed in satisfactory condition to undergo the procedure. The anesthesia plan was to use monitored anesthesia care (MAC). Immediately prior to administration of medications, the patient was re-assessed for adequacy to receive sedatives. The heart rate, respiratory rate, oxygen saturations, blood pressure, adequacy of pulmonary ventilation, and response to care were monitored throughout the procedure. The physical status of the patient was re-assessed after the procedure. After I obtained informed consent, the scope was passed under direct vision. Throughout the procedure, the patient's blood pressure, pulse, and oxygen saturations were monitored continuously. The colonoscope was introduced through the anus and advanced to the terminal ileum, with identification of the appendiceal orifice and IC valve. The colonoscopy was performed without difficulty. The patient tolerated the procedure well. The quality of the bowel preparation was good. The terminal ileum, ileocecal valve, appendiceal orifice, and rectum were photographed. Findings: The perianal and digital rectal examinations were normal. A 7 mm polyp was found in the sigmoid colon. The polyp was sessile. The polyp was removed with a cold snare. Resection and retrieval were complete. Multiple large-mouthed, medium-mouthed and small-mouthed diverticula were found in the sigmoid colon, descending colon, transverse colon and ascending colon. Non-bleeding internal hemorrhoids were found during retroflexion. The hemorrhoids were mild and Grade I (internal hemorrhoids that do not prolapse). The terminal ileum appeared normal. The exam was otherwise without abnormality. Scope Withdrawal Time 0 hours 7 minutes 17 seconds Estimated Blood Loss: Estimated blood loss was minimal. Complications: No immediate complications. Impression: - One 7 mm polyp in the sigmoid colon, removed with a cold snare. Resected and retrieved. - Diverticulosis in the sigmoid colon, in the descending colon, in the transverse colon and in the ascending colon. - Non-bleeding internal hemorrhoids. - The examined portion of the ileum was normal. - The examination was otherwise normal. Recommendation: - Resume previous diet. - Continue present medications. - Repeat colonoscopy in 5 years for surveillance. Procedure Code(s): --- Professional --- 30285, Colonoscopy, flexible; with removal of tumor(s), polyp(s), or other lesion(s) by snare technique Diagnosis Code(s): --- Professional --- D12.5, Benign neoplasm of sigmoid colon K64.0, First degree hemorrhoids K57.30, Diverticulosis of large intestine without perforation or abscess without bleeding R93.3, Abnormal findings on diagnostic imaging of other parts of digestive tract CPT copyright 2022 [employer]. All rights reserved. The codes documented in this report are preliminary and upon performing arts road manager review may be revised to meet current compliance requirements. MD Liana Peterson MD 05/25/2024 12:48:49 PM This report has been signed electronically by:Liana Sheriff MD Number of Addenda: 0 Scope In: 12:27:40 PM Scope Out: 12:41:30 PM [address] [place] [address] us Liana Sheriff MD ENDOPRO GI INTERFACE Final R esult [facility] * HM DIABETES EYE EXAM (10/23/2022) 10/23/2022 Impressions Deborah Ambrose, Office Staff - 10/23/2022 See media for detailed diabetic eye exam report. us Venkat Mcleod OD HEALTH MAINTENANCE Final Result * Abdominal Duplex for AAA (Medicare) (03/29/2022 8:56 AM EDT) Anatomical Region Laterality Modality Abdomen, Pelvis Ultrasound 03/29/2022 9:03 AM EDT Impressions 03/29/2022 9:07 AM EDT NO EVIDENCE OF AN ABDOMINAL AORTIC ANEURYSM Radiologist location ID: [id number] Narrative 03/29/2022 9:07 AM EDT BAKARI LOMAS RADIOLOGIST: Malcolm Krishna ABDOMINAL DUPLEX - AORTA - MEDICARE SCREEN FOR AAA performed on 03/29/2022 8:56 AM CLINICAL HISTORY: Z13.6: Encounter for abdominal aortic aneurysm (AAA) screening COMPARISON: None. FINDINGS: Abdominal aorta measurements: Proximal: 1.5 x 1.9 cm Mid: 2.2 x 2.3 cm Distal: 1.3 x 1.3 cm Iliac arterial measurements at bifurcation: Right: 0.7 x 1.0 cm Left: 0.7 x 0.7 cm The abdominal aorta has a grossly normal contour. No abdominal aortic aneurysm is identified. DOPPLER: Color Doppler: Normal color flow doppler signal Spectral Doppler: Normal arterial waveforms Procedure Note Tomi, Malcolm Stephenson MD - 03/29/2022 BAKARI LOMAS RADIOLOGIST: Malcolm Krishna ABDOMINAL DUPLEX - AORTA - MEDICARE SCREEN FOR AAA performed on 28:56 AM CLINICAL HISTORY: Z13.6: Encounter for abdominal aortic aneurysm (AAA)screening COMPARISON: None. FINDINGS: Abdominal aorta measurements: Proximal: 1.5 x 1.9 cm Mid: 2.2 x 2.3 cm Distal: 1.3 x 1.3 cm Iliac arterial measurements at bifurcation: Right: 0.7 x 1.0 cm Left: 0.7 x 0.7 cm The abdominal aorta has a grossly normal contour. No abdominal aorticaneurysm is identified. DOPPLER: Color Doppler: Normal color flow doppler signal Spectral Doppler: Normal arterial waveforms IMPRESSION: NO EVIDENCE OF AN ABDOMINAL AORTIC ANEURYSM Radiologist location ID: [id number] Maya Gastelum PA-C VASCULAR ORDERABLES Final Re sult * HEPATITIS C ANTIBODY SCREEN WITH REFLEX TO HCV PCR (03/08/2022 9:07 AM EDT) HCV ANTIBODY QUALITATIVE Negative Negative 03/08/2022 12:05 PM EDT [facility] Comment:Hepatitis Serology M ethods = Chemiluminescent immunoassay performed on [employer] equipment Blood BLOOD SPECIMEN / Unknown Venipuncture / Unknown 03/08/2022 9:07 AM EDT 03/08/2022 9:07 AM EDT Maya Gastelum PA-C LAB-IMMUNOLOGY ORDERABLES Fi nal Result [facility] [address] [place] [address] from Last 3 Months or Most Recently Relevant to Health Maintenance Insurance [address] [address] [facility] MEDICARE MEDICARE MEDICARE Advance Directives For more information, please contact: [phone] * Full Code (Latest Code Status on File) Date Activated Date Inactivated Comments 02/16/2024 9:30 PM 02/18/2024 2:15 AM * Full Code Date Activated Date Inactivated Comments 06/04/2023 12:00 AM 06/05/2023 8:56 PM * Full Code Date Activated Date Inactivated Comments 02/20/2022 8:30 AM 02/20/2022 6:50 PM Care Teams Cash Sales Audit Clerk Relationship Specialty Start Date End Date Maya Gastelum PA-C [address] [facility] [address] [place] [address] PCP - General PHYSICIAN COOK CHILI 05/02/22 Jeremiah Amos MD [address] [facility] [address] [place] [address] ORTHOPAEDIC SURGERY 06/27/22 Alesia Prakash, [facility] [address] [place] [address] [address] [place] [address] Registered Nurse FAMILY NURSE PRACTITIONER 06/27/22 Deysi Mosquera APRN,[facility] [address] [place] [address] [address] [place] [address] FAMILY NURSE PRACTITIONER 06/27/22 Gordo Chicas MD [address] [place] [address], [place] [address] GASTROENTEROLOGY 06/27/22 Nicky Irizarry MD 20 [place] [address] UROLOGY 06/12/23 Viktoriya Johnson MD [address] [place] [address] [address] DMITRY TERR[place] [address] UROLOGY 02/20/24 Gordo White NP [address] [facility] [place] [address] FAMILY NURSE PRACTITIONER 10/06/24
--- OUTSIDE RECORDS SUMMARY | 2025-03-05 21:26 | XMS_ITS | Clinical Summary ---
Author Organization [facility] Ambulatory Address [address] [place] [address] Phone Care Team Providers Care Comic Writer Name Role Phone Maya Gastelum PA-C Unavailable [phone] Sander Bear MD Unavailable [phone] Elizabeth Blackmon MD, [place] Unavailable [phone] Provider, Generic External Data Unavailable Unavailable Malou Yang PA-C Unavailable [phone] Dominic Rock MD Unavailable Citlali Pak PA-C Unavailable Provider, Historical Unavailable Unavailable Source Comments This [...] except as provided at sections 2.12(c)(5) and 2.65.[facility] Ambulatory Allergies Active Allergy Reactions Criticality Noted Date Comments Ciprofloxacin Hcl Itching,Rash Medium 10/05/2021 Morphine 04/01/2024 Nitrofurantoin Monohyd/M-Cryst Itching Low 10/05 Sulfamethoxazole-Trimethoprim Itching Low 2021 Medications albuterol sulfate 90 mcg/actuation inhl inhaler Take 1-2 puffs Ac tive allopurinoL (ZYLOPRIM) 100 mg oral tablet Take 1 tablet by mouth daily 3 Active amitriptyline (ELAVIL) 10 mg oral tablet Take 25 mg by mouth 3 Active atorvastatin (LIPITOR) 80 mg oral tablet Take 1 tablet by mouth nightly 3 Active cyclobenzaprine (FLEXERIL) 10 mg oral tablet TAKE ONE TABLET BY MOUTH EVERY NIGHT NEEDED FOR MUSCLE SPASMS 3 Active dapagliflozin propanediol (FARXIGA) 10 mg oral tablet Take 10 mg by mouth 3 Active DULoxetine (CYMBALTA) 60 mg oral delayed-release capsule Take 1 capsule by mouth daily 3 Active ferrous sulfate 325 mg (65 mg iron) oral tablet Take 325 mg by mouth 3 Active fluticasone-umec lidin-vilanter (TRELEGY ELLIPTA) 100-62.5-25 mcg inhl blister with device Take 1 Inhalation 3 Active levothyroxine 88 mcg oral tablet Take 1 tablet by mouth daily 3 Active losartan (COZAAR) 25 mg oral tablet Take 25 mg by mouth 3 Active metFORMIN (GLUCOPHAGE-XR) 500 mg oral extended-release tablet Take 2,000 mg by mouth 3 Active rizatriptan (MAXALT) 10 mg oral tablet Take 10 mg by mouth 3 Active semaglutide (OZEMPIC) 0.25 mg or 0.5 mg (2 mg/3 mL) subQ pen injector Inject into the skin Active trospium (SANCTURA) 20 mg oral tabletIndication s:Bladder spasms Take 1 tablet by mouth 2 times a day 60 tablet 3 4 Active Hospital, Clinic, or Other Facility Administered Medication Ordered Dose Route Frequency Start Date End Date Status BCG Live (Duyen BCG) susr 50 mgIndications:Malignant neoplasm of overlapping sites of bladder (HCC) 50 mg Marzena Once 02/17/2025 02/17/2025 En ded BCG Live ([place] BCG) susr 50 mgIndications:Malignant neoplasm of overlapping sites of bladder (HCC) 50 mg Marzena Once 02/26/2025 02/26/2025 En ded BCG Live (Duyen BCG) susr 50 mgIndications:Malignant neoplasm of overlapping sites of bladder (HCC) 50 mg Marzena Once 03/03/2025 03/03/2025 En ded Encounters Date Type Department Care Team Description 03/03/2025 10:30 AM EDT Office Visit [facility] Department of Urology [address] [place] [phone] Pathology Specialist: Rita Miller Jessie Jane, PA-C Malignant neoplasm of overlapping sites of bladder (HCC) (Primary Dx) 02/26/2025 8:30 AM EDT Office Visit [facility] Department of Urology [address] [place], [place] [phone] Pathology Specialist: Rita Miller Tatum V, MD Malignant neoplasm of overlapping sites of bladder (HCC) (Primary Dx) 02/17/2025 1:30 PM EDT Office Visit [facility] Department of Urology [address] [place] [phone] Pathology Specialist: Rita Miller Michaela, PA-C Malignant neoplasm of overlapping sites of bladder (HCC) (Primary Dx) 01/29/2025 9:00 AM EDT Office Visit [facility] Department of Urology [address] [place] [phone] Pathology Specialist: Rita Miller Tatum V, MD Malignant neoplasm of overlapping sites of bladder (HCC) (Primary Dx) 01/29/[address] [facility] Department of Urology [address] [place] [address], [address] [phone] Pathology Specialist: Rita Miller Tatum V, MD from Last 3 Months Immunizations Immunization Administration Dates Next Due SARS-CoV-2 (Purple Cap, With Diluent) Pfizer 06/14/2021,10/27/2020,10/06/2020 Social History Tobacco Use Types Packs/Day Years Used Date Smoking Tobacco: Former Cigarettes Smokeless Tobacco: Current Snuff Tobacco Cessation:Ready to Q uit: Not Asked; Counseling Given: Not Answered Sex and Gender Information Value Date Recorded Sex Assigned at Not on file Legal Sex Male 1:25 PM EST Gender Identity Male 02/26/2025 8:54 PM EDT Sexual Orientation Straight 02/26/2025 8: 54 PM EDT Last Filed Vital Signs Vital Sign Reading Time Taken Comments Blood Pressure - - Pulse - - Temperature - - Respiratory Rate - - Oxygen Saturation - - Inhaled Oxygen Concentration - - Weight 88 kg (194 lb) 03/03/2025 10:39 AM EDT Height 175.3 cm (5' 9 ) 03/03/2025 10:39 AM EDT Body Mass Index 28.65 03/03/2025 10:39 AM EDT Plan of Treatment Health Maintenance Due Date Last Done Comments AAA Screening 1955 Cholesterol Screening 1955 Cologuard 1955 Colonoscopy 1955 Colorectal Cancer Screening 1955 Fecal Occult Blood Testing 1955 Full Body Skin Exam 1955 Medicare Annual Wellness Visit 1955 Sigmoidoscopy 1955 TSH 1955 Prostate Discussion 1955 Advance Directives 1973 Hepatitis C Screen 1973 DTaP/Tdap/Td Vaccine (1 - Tdap) 1974 Pneumococcal Vaccine (1 of 2 - PCV) 1974 Shingles Vaccine (Recombinan t) (1 of 2) 1974 RSV Vaccine (1 - Risk 60-74 years 1-dose series) 2015 Hearing Screening 2020 Vision Exam 2020 COVID-19 Vaccine (4 - 2023-2 5 season) 2024 06/14/2021, 10/27/2020, 10/06/2020 Depression Screening 07/08/2024 Flu Vaccine (#1) 04/07/2025 Hepatitis B Vaccine Aged Out No longe r eligible based on patient's age to complete this topic Procedures Procedure Name Priority Date/Time Associated Diagnosis Comments POCT URINALYSIS DIPSTICK Routine 025 11:42 AM EDT Malignant neoplasm of overlapping sites of bladder (HCC) POCT URINALYSIS DIPSTICK Routine 025 8:54 AM EDT Malignant neoplasm of overlapping sites of bladder (HCC) POCT URINALYSIS DIPSTICK Routine 025 2:32 PM EDT Malignant neoplasm of overlapping sites of bladder (HCC) CYSTOURETHROSCOPY Routine 01/29/2025 9:0 0 AM EDT Malignant neoplasm of overlapping sites of bladder (HCC) CYTOLOGY, URINE Routine 01/29/2025 9:00 AM EDT Malignant neoplasm of overlapping sites of bladder (HCC) from Last 3 Months Results * POCT URINALYSIS DIPSTICK (03/03/2025 11:42 AM EDT) Only the most recent of3 resultswithin the time period is included. COLOR - URINE (POC) YELLOW EXTERNAL FACILITY [...] TEST ENTER/EDIT ORDERABLES Final Result EXTERNAL FACILITY * CYSTOURETHROSCOPY (01/29/2025 9:00 AM EDT) Narrative Viktoriya Johnson MD - 01/29/2025 9:00 AM EDT Viktoriya Johnson MD 01/29/2025 9:41 AM Procedure: Cystoscopy (CPT 20223) Date/Time: 01/29/2025 9:00 AM Performed by: Viktoriya Johnson MD Authorized by: Viktoriya Johnson MD Risks & Benefits: The alternatives, risks, benefits, and expected outcomes were reviewed with the patient. Consent Type Obtained: written Time Out: Immediately prior to the procedure a time out was called A time out verifies correct patient, , procedure and location. Procedure performed with a resident or fellow: No Antibiotics: prophylactic antibiotics given Prep: patient was prepped and draped in usual sterile fashion Prep type: Betadine Anesthesia: local anesthetic jelly Procedure Details Cystoscope type: flexible Cystoscopy route: transurethral Cystoscopy location: tun[place]ak bladder Irrigation used: saline Position: supine Urethra Urethra: normal Prostate Prostate: normal Bladder Bladder: normal Trigone: normal Ureters: normal Post-Procedure Details Catheter placed: no Appearance of urine after procedure: clear Outcome: patient tolerated procedure well with no complications Disposition: discharged home in satisfactory condition Viktoriya Blackmon MD PROCEDURE ORDERABLES Final Result * CYTOLOGY, URINE (01/29/2025 9:00 AM EDT) Urine 01/29/2025 9:00 AM EDT 02/01/2025 7:[address] [facility] - 02/02/2025 1:07 PM EDT CLINICAL HISTORY: C67.8 (MALIGNANT NEOPLASM OF OVERLAPPING SITES OF BLADDER) SOURCE OF SPECIMEN: URINE, VOIDED FINAL DIAGNOSIS: URINE, VOIDED: SATISFACTORY FOR INTERPRETATION. ATYPICAL UROTHELIAL CELLS (NASREEN SYSTEM). ATYPICAL UROTHELIAL CELLS, WITH ENLARGED HYPERCHROMATIC NUCLEI, CANNOT RULE OUT A NEOPLASTIC PROCESS. ACUTE INFLAMMATORY CELLS. SNK/SNK Report Electronically Signed Out By Pathologist: Manda Romero M.D. 02/02/2025 13:07 My signature is attestation that I have personally reviewed the submitted material(s) and the final diagnosis reflects that evaluation. Specimen was processed by ThinPrep 2000 system, a slide preparation device, Manufactured by [employer], [place], [place] Explanation of Primary Non-Gynecologic Cytopathology Diagnostic Categories: The Negative for Malignant Cells category reflects the benign nature of the specimen. However, there are occasional False Negative cases due to problems with sampling, processing, screening, interpretation, or clinical correlation. The Atypical Cells Present and Suspicious for Malignant Cells categories are indeterminate categories with increasing degrees of positive predictive value. The Positive for Malignant Cells category is placed on cases which fulfill the malignant criteria for that particular organ site. However, specific typing in some cases, presence or absence of invasion and other diagnostic/prognostic/theranostic information may require additional procedures. GROSS DESCRIPTION: RECEIVED 50 ML OF YELLOW FLUID. THE SPECIMEN IS SUBMITTED URINE, VOIDED AND IS LABELED WITH THE PATIENT'S NAME, INITIALS KA. The following statement applies to all immunohistochemistry, insitu hybridization (BROOKE & FISH), molecular & genomic pathology, and immunofluorescence testing: The testing was developed, and its performance characteristics determined by the Department of Pathology, as required by the CLIA '88 regulations. The testing has not been cleared or approved for the specific use by the U.S. Food and Drug Administration, but the FDA has determined such approval is not necessary for clinical use. Unless otherwise specified in the gross description, all tissue is submitted for formalin-fixed paraffin embedding. Tissue fixation ranges from a minimum of 6 to a maximum of 96 hours. Immunohistochemical stains (where applicable) are performed with appropriate positive and negative control reactions. Immunohistochemistry assays have not been validated on decalcified tissues. Results should be interpreted with caution given the raised possibility of false negativity on decalcified specimens. Methods of staining, performance characteristics, and validation assays of all antibodies in our test menu that are in clinical use are described in our laboratory test catalogue and readily available upon clinician, patient, or pathologist request. This laboratory is certified under the Clinical Laboratory Improvement Amendments of 1988 ( CLIA ) as qualified to perform high-complexity clinical testing. Pursuant to the requirements of CLIA, ASR's used in this laboratory have been established and verified for accuracy and precision. Additional information about this type of test is available upon request. SLIDE/STAIN SUMMARY: Part 1: URINE, VOIDED Stain/Cnt Block PAP x 1 TLP x 1 CONSULTING PATHOLOGIST(S): Arturo Bullard M.D. TC1 [facility] Department of Pathology [address] [place] [phone] Viktoriya Blackmon MD LAB PATHOLOGY/CYTOLOGY ORDERAB LES Final Result [facility] from Last 3 Months Insurance [employer] [address] [employer] MEDICARE NON-SNP Care Teams Comic Writer Relationship Specialty Start Date End Date Maya Gastelum PA-C [address] [facility] [address] [place] [phone] PCP - CANCER CTR RMD 06/12/23 Sander Bear MD [address] [place] [address], [address] [place] [address] PCP - Cancer CTR Hematology & Oncology-Internal Med 06/12/23 Viktoriya Johnson MD [address] [facility], [address] [address] [place] [address] Urology 06/13/23 Provider, Generic External Data 06/25/23 Malou Yang PA-C [address] [facility], [place] [place] [address] Urology 10/10/23 Dominic Rock MD [address] [facility] [address] [place] [address] Urology 02/15/24 Citlali Pak PA-C [address] [facility] [address] [place] [phone] Urology 03/25/24 Provider, Historical EPICARE PROVIDER 12/02/24
--- OUTSIDE RECORDS SUMMARY | 2025-03-05 21:26 | XMS_ITS | Encounter Summary ---
Author Organization [facility] Address [address] [facility] [place] [address] Care Team Providers Care Accident Examiner Name Role Phone Maya Gastelum PA-C Primary Care Provider [phone] Jeremiah Amos MD Unavailable [phone] Gómez Little MD, Hammad Unavailable [phone] Alesia Prakash COOKING TEACHER-BC Unavailable + Deysi Mosquera APRN,COOKING TEACHER-BC Unavailable [phone] Gordo Chicas MD Unavailable Nicky Irizarry MD Unavailable [phone] Viktoriya Johnson MD Unavailable Gordo White NP Unavailable Reason for Visit * Reason Onset Date Comments Medication Refill 02/04/2023 Encounter Details Date Type Department Care Team (Late st Contact Info) Description 02/04/2023 MyChart Refill Neurology, Physician Office Center 1 [place] [phone] Ivet Medrano APRN [address] [place] [address] [place] [address] Social History Tobacco Use Types Packs/Day Years [...] phone, visiting friends or family, going to jainism or club meetings) 5 or more times [...] 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 No / Unsure 02/06/2023 11:42 AM EDT documented as of this encounter Functional Status * Deaf or serious difficulty hearing? Answer Date of Assessment Author No 03/26/2022 7:43 AM EDT Joan Wick RN * Blind or serious difficulty seeing even with glasses? Answer Date of Assessment Author No 03/26/2022 7:43 AM EDJoan Amaral RN * Serious difficulty walking/climbing stairs? Answer Date of Assessment Author Yes 03/26/2022 7:43 AM EDJoan Amaral RN * Difficulty dressing or bathing? Answer Date of Assessment Author No 03/26/2022 7:43 AM Joan Coronel RN * Has difficulty doing errands because of physical, mental or emotional condition? Answer Date of Assessment Author No 03/26/2022 7:43 AM EDJoan Amaral RN documented as of this encounter Mental Status * Has serious difficulty concentrating, remembering or making decisions because of physical, mental or emotional condition ? Answer Entry Date Author No 03/26/2022 7:43 AM Joan Coronel RN documented in this encounter Plan of Treatment Upcoming Encounters Date Type Department Care Team (Late st Contact Info) Description 03/10/2025 9:00 AM EDT Office Visit Plastic Surgery [address] [place] [address], [place] [phone] Loc Chavez MD [address] [place] [address] [address] [place], [place] [phone] 04/01/2025 10:30 AM EDT Office Visit Family Medicine, [facility] Professional Building [address] [place] [address], [place] [phone] Maya Gastelum PA-C [address] [place] [phone] 04/16/2025 1:00 PM EDT Office [facility] [address] [place] [phone] Teresita Warren NP [address] [facility] [address] [place], [place] [phone] 12/01/2025 10:00 AM EDT [facility] Visit [facility], [address], [address] [place] [address] Ruba Gil, DO [address] [place] [phone] documented as of this encounter Visit Diagnoses Not on filedocumented in this encounter Care Teams Accident Examiner Relationship Specialty Start Date End Date Maya Gastelum PA-C [address] [place], [place] [phone] PCP - General PHYSICIAN OUTSIDE MACHINIST 05/02/22 Jeremiah Amos MD [address] [place] [address] ORTHOPAEDIC SURGERY 06/27/22 Hammad Magaña Jr., MD [address] [place], [place] [phone] UROLOGY 06/27/22 07/22/23 Alesia Prakash, [facility] [address] [place] [address] Registered Nurse FAMILY NURSE PRACTITIONER 06/27/22 Deysi Mosquera APRN,[facility] [address] [place] [address] FAMILY NURSE PRACTITIONER 06/27/22 Gordo Chicas MD [address] [place] [address] GASTROENTEROLOGY 06/27/22 Nicky Irizarry MD [address] [place] [address], [place] [address] UROLOGY 06/12/23 Viktoriya Johnson MD [address] [place] [address] [address] [place] [address] UROLOGY 02/20/24 Gordo White NP [address] [place] [address] FAMILY NURSE PRACTITIONER 10/06/24 documented as of this encounter
--- OUTSIDE RECORDS SUMMARY | 2025-03-05 21:26 | XMS_ITS ---
Author Organization [facility] Address 1 [facility] [place] [address] Care Team Providers Care Pricing Lead Name Role Phone Maya Gastelum PA-C Primary Care Provider Jeremiah Amos MD Unavailable Alesia Prakash MOLD SHOP SUPERVISOR-BC Unavailable + Deysi Mosquera APRNMOLD SHOP SUPERVISOR-BC Unavailable [phone] Gordo Chicas MD Unavailable Nicky Irizarry MD Unavailable Viktoriya Johnson MD Unavailable Gordo White NP Unavailable Active Problems * This document contains information received from the source organization and may not represent a complete record from that organization. Problem Noted Date Diagnosed Date Chronic respiratory failure with hypoxia ([facility]) 12/30/2024 Hematuria 02/16/2024 Acute kidney injury ([facility]) 02/16/2024 Chronic obstructive pulmonary disease 07/23/2023 Malignant neoplasm of urinary bladder 07/23/2023 Obstructive sleep apnea 07/23/2023 HTN (hypertension) 07/23/2023 Neurogenic bladder 06/04/2023 Multiple comorbid conditions 06/04/2023 Elevated PSA 06/04/2023 Gross hematuria 06/03/2023 Iron deficiency anemia due to chronic blood loss 04/04/2023 Chronic kidney disease, stage 3b ([facility]) 08/27 Overview (08/27/2022): Noted by AARON Perdomo MOLD SHOP SUPERVISOR last documented on [id number] Major depressive disorder, r ecurrent, in full remission ([facility]) 08/27/2022 Overview (08/27/2022): Noted by LAKISHA [...] (11/28/2021 1:31 PM EDT): - continue allopurinol Current Treatment and Therapy Plans No current plan information found. Other Current Plans [facility] - SUPPORTIVE CARE PLAN* Plan Start Date:04/19/2023 Plan Provider:Deejay Jaramillo MD Linked Problems Iron deficiency anemia due t o chronic blood loss Treatment Medications No medications scheduled. Past Treatment and Therapy Plans No past plan information found. Lifetime Dose Tracking * Chemical Lifetime Dose Automatic Entry Manual Entr y CT 6,170.86 DLP (mGycm) 6,170.86 DLP (mGycm) 0 DLP (mGycm) Fluoro2 12 mGy/cm2 12 mGy/cm2 0 mGy/cm2 Fluoro-mGy 2.4 mGy 2.4 mGy 0 mGy CTDIvol 7.94 mGy 7.94 mGy 0 mGy Resolved Problems Problem Noted Date Diagnosed Date Resolved Date Bilateral occipital neuralgia 11/28/2021 11/28/2021 Assessment & Plan (11/28/2021 1:37 PM EDT): - BL occipital nerve blocks
--- NOTE | 2025-03-05 21:27 | PC.NURSE ---
pt states straight caths himself all the time and requesting to straight cath himself now, [place] okay with this. supplies provided.
--- NOTE | 2025-03-05 21:40 | MHC.EDTECH ---
bladder scan showed 865mL of urine, after pt straight cath himself he had emptied 1000mL, post self cath, bladder scan read 252mL. Provider and RN made aware
[2025-03-05 21:46] VITALS: BP 175/98; PULSE 77; RESP 20; TEMP 36.1; O2SAT 98
== END 2025-03-05 21:46 | disposition home or self-care (01) ==
PROVIDERS: Emergency Provider Emergency Medicine
DX: N31.9 Neuromuscular dysfunction of bladder, unspecified (principal); R33.9 Retention of urine, unspecified
CPT/HCPCS: 51701; 99283